=== PATIENT | female | born 1950 | race Hispanic/Latino ===

== ENCOUNTER 2018-05-17 17:46 | Emergency (ER) | payer MEDICARE ==
--- NOTE | 2018-05-17 18:49 | ED PDOC ---
Lower Extremity Pain/Injury Time Seen by Provider: 05/17/18 18:05 Chief Complaint (Nursing): Lower Extremity Problem/Injury Chief Complaint (Provider): Left Ankle and Lower Leg Pain History Per: Patient History/Exam Limitations: no limitations Onset/Duration Of Symptoms: Hrs (happened around 1100 this morning) Current Symptoms Are (Timing): Still Present Additional Complaint(s): 67 year old female presents to the ED for evaluation of left ankle and lower leg pain s/p a trip and fall over a rug this morning around 1100. She reports landing from the fall on a twisted left ankle, now having localized pain to the area worse with ambulation and movement. 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 PMD: Sri Past Medical History Reviewed: Historical Data, Nursing Documentation, Vital Signs Vital Signs: Last Vital Signs Temp 97.8 F 05/17/18 18:03 Pulse 73 05/17/18 18:03 Resp 16 05/17/18 18:03 BP 163/70 H 05/17/18 18:03 Pulse Ox 100 05/17/18 18:03 - Medical History PMH: HTN, Hypercholesterolemia Other PMH: vertigo - Surgical History Surgical History: Cholecystectomy - Family History Family History: States: Unknown Family Hx - Home Medications Home Medications: Ambulatory Orders Medication Instructions Recorded RX: Alprazolam [Xanax] 0.5 mg PO BID PRN 04/19/14 RX: Esomeprazole Magnesium [Nexium] 20 mg PO DAILY 02/12/15 RX: Meclizine [Meclizine*] 25 mg PO Q12 PRN 02/12/15 RX: Losartan [Cozaar] 50 mg PO DAILY #30 tab 11/01/15 Acetaminophen [Acetaminophen 8 650 mg PO Q8 PRN #21 tablet.er 05/17/18 Hour] Meloxicam [Mobic] 15 mg PO DAILY #10 tab 05/17/18 - Allergies Allergies/Adverse Reactions: Allergies Allergy/AdvReac Type Severity Reaction Status Date / Time No Known Allergies Allergy Verified 10/31/15 03:07 Review of Systems ROS Statement: Except As Marked, All Systems Reviewed And Found Negative Constitutional: Negative for: Other (head injury) Musculoskeletal: Positive for: Other (left ankle and lower leg pain, worse with movement / ambulation) Neurological: Negative for: Other (LOC) Physical Exam - Reviewed Nursing Documentation Reviewed: Yes Vital Signs Reviewed: Yes - Physical Exam Comments: GENERAL APPEARANCE: Patient is awake, alert, oriented x 3, resting comfortably. Seen limping in ED. SKIN: Warm, dry; (-) cyanosis. LEFT LOWER EXTREMITY: (+) tenderness of lateral malleolus and distal lateral fibula. (+) small effusion to ankle, (-) ecchymosis, (-) erythema, (-) crepitus, (-) skin break. Decreased ROM in ankle secondary to pain. Remainder of foot and knee nontender. (+) proximal fibular tenderness, (-) edema, (-) ecchymosis. Sensation intact. Capillary refill less than two seconds in all toes. (+) distal pulse. CARDIOVASCULAR: RRR CHEST AND RESPIRATORY: (-) rales, (-) rhonchi, (-) wheezes; breath sounds equal bilaterally. NEUROLOGIC: (+) distal sensation. - ECG O2 Sat by Pulse Oximetry: 100 (RA) Pulse Ox Interpretation: Normal Medical Decision Making Medical Decision Making: Initial Impression: Acute lower leg and ankle pain s/p fall, r/o fx Time: 1819 Initial Plan: --Ultram 50mg PO (not driving home) --Left ankle XR --Left tibia fibula XR 1944 Tib/Fib XR: (-) fracture as read by Ami YOO Ankle XR: (-) fracture as read by Ami YOO Consult placed to podiatry. 1999 Spoke to podiatry resident Phyllis Chavarria, who recommends webril, alma delia bandage, and surgical shoe placement. Patient can follow up in podiatry clinic within the week. 2049 Repeat BP: 142/76 Webril, alma delia bandage, and surgical shoe applied by hybrid technologist. NV intact after placement. RICE encouraged. On re-evaluation, patient reports improvement of symptoms. On exam, patient remains AAOx3, in no acute distress. Lungs clear to auscultation, cardiac RRR, repeat neuro exam shows no focal findings. Vitals stable. Lab/Diagnostic results d/w the patient in great detail. Diagnosis of acute ankle pain/sprain s/p fall d/w the patient. Based on history, exam and diagnostic results, plan will be for outpatient follow up with podiatry clinic. Patient instructed to follow-up with pmd / referral provided / the clinic in 1- 2 days without fail. Advised to take medication as prescribed. Return to the emergency room at any time for any new or worsening symptoms. Patient states she fully agrees with and understands discharge instructions. States that she agrees with the plan and disposition. Verbalized and repeated discharge instructions and plan. I have given the patient opportunity to ask any additional questions. Scribe Attestation: Documented by Anamaria Sims, acting as a scribe for Vangie Mueller PA-C. Provider Scribe Attestation: All medical record entries made by the Scribe were at my direction and personally dictated by me. I have reviewed the chart and agree that the record accurately reflects my personal performance of the history, physical exam, medical decision making, and the department course for this patient. I have also personally directed, reviewed, and agree with the discharge instructions and disposition. Disposition - Clinical Impression Clinical Impression: Ankle pain, Ankle sprain - Patient ED Disposition Is Patient to be Admitted: No Counseled Patient/Family Regarding: Studies Performed, Diagnosis, Need For Followup, Rx Given - Disposition Referrals: Podiatry Clinic [Outside] Roseanne De La Rosa MD [Staff Provider] - Disposition: Routine/Home Disposition Time: 20:50 Condition: STABLE Additional Instructions: REST, ICE, AND ELEVATE LOWER EXTREMITY. FOLLOW UP WITH PODIATRY. CALL AND SCHEDULE APPOINTMENT UPON DISCHARGE. The emergency medical care you received today was directed at your acute symptoms. If you were prescribed any medication, please fill it and take as directed. It may take several days for your symptoms to resolve. Return to the Emergency Department if your symptoms worsen, do not improve, or if you have any other problems. Please contact your doctor in 2 days for re-evaluation and follow up / or call one of the physicians/clinics you have been referred to that are listed on the Patient Visit Information form that is included in your discharge packet. Bring any paperwork you were given at discharge with you along with any medications you are taking to your follow up visit. Our treatment cannot replace ongoing medical care by a primary care provider (PCP) outside of the emergency department. Prescriptions: Acetaminophen [Acetaminophen 8 Hour] 650 mg PO Q8 PRN #21 tablet.er PRN Reason: Pain, Moderate (4-7) Meloxicam [Mobic] 15 mg PO DAILY #10 tab Instructions: Ankle Sprain, Sprain (DC) Forms: [employer] ([place] Islander) Print Language: CROATIAN - POA Present On Arrival: Falls Or Trauma
[2018-05-17 22:02] VITALS: BP 142/76; PULSE 76; RESP 18; TEMP 98
--- NOTE | 2018-05-18 09:03 | RAD ---
Date of service: 05/17/2018 PROCEDURE: Radiographs of the left tibia and fibula. HISTORY: s/p fall, r/o fracture COMPARISON: None available. TECHNIQUE: Frontal and lateral views obtained. FINDINGS: BONES: There is mild diffuse bone demineralization. No acute fracture or bone destruction. JOINT SPACES: Unremarkable. OTHER FINDINGS: None. IMPRESSION: No acute fracture or dislocation.
--- NOTE | 2018-05-18 10:35 | RAD ---
Date of service: 05/17/2018 PROCEDURE: Left Ankle Radiographs. HISTORY: s/p fall, r/o fracture COMPARISON: None available. FINDINGS: BONES: There is no acute displaced fracture or bone destruction. Bone alignment is normal. JOINTS: Normal. No osteoarthritis. Ankle mortise maintained. Talar dome intact SOFT TISSUES: Mild periarticular soft tissue swelling. OTHER FINDINGS: None. IMPRESSION: No acute fracture or dislocation.
[2018-05-18 17:33] VITALS: O2SAT 100
== END 2018-05-17 21:20 | disposition home or self-care (01) ==
LOC: SUPCPDRO 17:46 → H.ER 17:46
DX: S93.402A Sprain of unspecified ligament of left ankle, initial encounter (principal); W19.XXXA Unspecified fall, initial encounter; Y92.89 Other specified places as the place of occurrence of the external cause